=== PATIENT | male | born 1965 | race Caucasian/White ===

== ENCOUNTER → 2016-06-14 | Outpatient (REF) ==
[~2016-06-14] MED LIST: ACTOPLUS MET 501 TAB; DOXYCYCLINE 10100 MG PO; LANTUS100 U/ML SC
== END ==
LOC: ZLAB.WCH 13:18
DX: Z01.89 Encounter for other specified special examinations (principal)

== ENCOUNTER → 2016-09-17 | Outpatient (REF) | LOC: ZLAB.WCH 10:10 | DX: Z01.89 Encounter for other specified special examinations (principal) ==

== ENCOUNTER → 2016-12-23 | Outpatient (REF) | LOC: ZLAB.WCH 18:07 | DX: Z01.89 Encounter for other specified special examinations (principal) ==

== ENCOUNTER → 2017-02-21 | Outpatient (REF) ==
[2017-02-21 15:45] LABS: C-REACTIVE PROTEIN < 0.5 mg/dL (0.0-0.9)
[2017-02-21 16:08] LABS: PSA-TOTAL 1.19 ng/mL (0-4)
== END ==
LOC: ZLAB.WCH 15:16
PROVIDERS: Internal Medicine
DX: Z01.89 Encounter for other specified special examinations (principal)
CPT/HCPCS: G0103

== ENCOUNTER → 2017-06-27 | Outpatient (REF) | LOC: ZLAB.WCH 18:10 | DX: Z01.89 Encounter for other specified special examinations (principal) ==

== ENCOUNTER → 2017-09-29 | Outpatient (REF) | LOC: ZLAB.WCH 08:40 | DX: Z01.89 Encounter for other specified special examinations (principal) ==

== ENCOUNTER → 2018-04-24 | Outpatient (REF) ==
[2018-04-24 19:33] LABS: THYROID STIMULATING HORMONE 1.64 uIU/mL (0.465-4.680)
[2018-04-24 19:52] LABS: PSA-TOTAL 1.56 ng/mL (0-4)
== END ==
LOC: ZLAB.WCH 18:29
PROVIDERS: Internal Medicine
DX: Z01.89 Encounter for other specified special examinations (principal)
CPT/HCPCS: G0103

== ENCOUNTER → 2018-08-10 | Outpatient (REF) | LOC: ZLAB.WCH 16:02 | DX: Z01.89 Encounter for other specified special examinations (principal) ==